=== PATIENT | female | born 1970 | race Caucasian/White ===

== ENCOUNTER → 2016-10-05 | Outpatient (CLI) | payer BC ==
[2016-10-05 10:49] LABS: Basophils # (auto) 0 uL; Basophils % (auto) 0.3 % (0.0-2.0); Eosinophils # (auto) 0 uL; Eosinophils % (auto) 0.1 % (0.0-7.0); Hemoglobin 9.3 g/dL (12.2-16.2); Lymphocytes # (auto) 0.5 uL; Lymphocytes % (auto) 8.5 % (10.0-50.0); Mean Corpuscular Hemoglobin 30.2 pg (28.0-32.0); Mean Corpuscular Volume 94.4 fL (80.0-100.0); Mean Platelet Volume 10.8 fL (7.4-10.4); Monocytes # (auto) 0.3 uL; Monocytes % (auto) 4.3 % (0.0-12.0); Neutrophils # (auto) 5.1 uL; Neutrophils % (auto) 86.8 % (37.0-80.0); Platelet Count (auto) 290 10^3/uL (140-450); Red Cell Distribution Width 15.5 % (11.6-16.0); SUSPECT VIEW TRANSMISSION; White Blood Cell 5.9 10^3/uL (4.4-10.8)
[2016-10-06 05:10] LABS: Thyroid Peroxidase (TPO) Ab 8 IU/mL (0-34)
== END | disposition home or self-care (01) ==
LOC: LAB 10:05
PROVIDERS: ATTEND Specialist
DX: N93.9 Abnormal uterine and vaginal bleeding, unspecified (principal); M32.9 Systemic lupus erythematosus, unspecified
CPT/HCPCS: 36415; 84439; 84443; 84481; 85025; 86160; 86225; 86235; 86376; 86431

== ENCOUNTER → 2016-11-02 | Outpatient (CLI) | payer BC ==
[2016-11-02 11:53] LABS: Albumin 4.1 g/dL (3.4-5.0); Basophils # (auto) 0 uL; Eosinophils # (auto) 0.1 uL; Eosinophils % (auto) 0.9 % (0.0-7.0); Hematocrit 42.1 % (36.0-46.0); Hemoglobin 13.5 g/dL (12.2-16.2); Lymphocytes # (auto) 0.7 uL; Lymphocytes % (auto) 10.2 % (10.0-50.0); Mean Corpuscular Hemoglobin 29.8 pg (28.0-32.0); Mean Corpuscular Hgb Conc. 32.1 g/dL (32.0-36.0); Mean Corpuscular Volume 92.9 fL (80.0-100.0); Mean Platelet Volume 11.6 fL (7.4-10.4); Monocytes # (auto) 0.3 uL; Monocytes % (auto) 4.1 % (0.0-12.0); Neutrophils # (auto) 5.8 uL; Neutrophils % (auto) 84.8 % (37.0-80.0); Platelet Count (auto) 290 10^3/uL (140-450); Potassium 4.2 mmol/L (3.5-5.1); Red Cell Distribution Width 16.3 % (11.6-16.0); SUSPECT VIEW TRANSMISSION; White Blood Cell 6.9 10^3/uL (4.4-10.8)
[2016-11-02 12:06] LABS: BUN/Creatinine Ratio 18.1; Bilirubin, Total 0.2 mg/dL (0.2-1.0); Calcium 8.5 mg/dL (8.5-10.1); Total Protein 7.1 g/dL (6.4-8.2)
== END | disposition home or self-care (01) ==
LOC: LAB 10:40
PROVIDERS: ATTEND Specialist
DX: N92.1 Excessive and frequent menstruation with irregular cycle (principal); D25.9 Leiomyoma of uterus, unspecified; M79.7 Fibromyalgia; M32.9 Systemic lupus erythematosus, unspecified
CPT/HCPCS: 36415; 80053; 83036; 84439; 84443; 84481; 85025; 86431

== ENCOUNTER 2016-12-17 06:26 | Inpatient (IN) | payer BC, MEDICARE ==
[2016-12-14 12:36] LABS: Basophils # (auto) 0 uL; Basophils % (auto) 0.2 % (0.0-2.0); Eosinophils # (auto) 0.2 uL; Eosinophils % (auto) 1.8 % (0.0-7.0); Hemoglobin 14.3 g/dL (12.2-16.2); Lymphocytes # (auto) 0.8 uL; Lymphocytes % (auto) 9.3 % (10.0-50.0); Mean Corpuscular Hemoglobin 31.2 pg (28.0-32.0); Mean Corpuscular Volume 91.7 fL (80.0-100.0); Mean Platelet Volume 11.9 fL (7.4-10.4); Monocytes # (auto) 0.4 uL; Monocytes % (auto) 4.1 % (0.0-12.0); Neutrophils # (auto) 7.5 uL; Neutrophils % (auto) 84.6 % (37.0-80.0); Platelet Count (auto) 197 10^3/uL (140-450); Red Cell Distribution Width 15.4 % (11.6-16.0); White Blood Cell 8.9 10^3/uL (4.4-10.8)
[2016-12-14 12:40] LABS: Urine Bilirubin Negative (Negative); Urine Color PINK (Yellow); Urine Glucose Normal (Normal); Urine Ketone Negative (Negative); Urine Nitrite Negative (Negative); Urine Urobilinogen Normal (Negative)
[2016-12-14 12:54] LABS: INR 0.94 (0.9-1.15); Prothrombin Time 10.2 sec (9.37-12.3); Urine Blood 3+ /uL (Negative)
[2016-12-14 13:03] LABS: Albumin 3.9 g/dL (3.4-5.0); BUN/Creatinine Ratio 14.8; Bilirubin, Total 0.2 mg/dL (0.2-1.0); Calcium 8.6 mg/dL (8.5-10.1); Potassium 4.3 mmol/L (3.5-5.1); Total Protein 7.2 g/dL (6.4-8.2)
[~2016-12-17] VITALS: Ht 167.6 cm; Wt 99.3 kg
[~2016-12-17 06:26] MED LIST: BUSP15TA60 PO; CLON1TAB PO; DULO20CA PO; FER325T PO; FOLI1TAB6 PO; GABA-497 PO; HYDR-3682 PO; HYDR-4663 PO; HYDR200T PO; MELO-86 PO; PILO5TAB10 PO; PRE5T OR; RANI300T3 PO; TRAZ100T2 PO
[2016-12-17] MEDS ORDERED: HYDROmorphone HCL 2 MG/ML VL ONE (06:39)
[2016-12-17] MEDS ORDERED: LIDOCAINE HCL 2 %PF INJ 10ML AMP IJ ONE (06:40)
[2016-12-17] MEDS ORDERED: PROPOFOL 10 MG/ML 20 ML IV ONE (06:40)
[2016-12-17] MEDS ORDERED: fentaNYL CITRATE 100 MCG/2 ML VL ONE (06:40)
[2016-12-17] MEDS ORDERED: ROCURONIUM 10MG/ML 10ML VIAL IV ONE (06:40)
[2016-12-17] MEDS ORDERED: MIDAZOLAM HCL 1MG/1ML-2 ML VIAL ONE (06:40)
[2016-12-17] MEDS ORDERED: METOCLOPRAMIDE HCL 5MG/ml INJ 2ml VIAL ONE (06:40)
[2016-12-17] MEDS ORDERED: ceFAZolin 1GM/50ML D5W 50 ML IV ONE (07:05)
[2016-12-17] MEDS ORDERED: HYDROCORTISONE SOD SUCC 100 MG/2ML INJ VIAL ONE (07:20)
[2016-12-17] MEDS ORDERED: GLYCOPYRROLATE 0.2 MG/ML 1ML VIAL ONE (08:20)
[2016-12-17] MEDS ORDERED: NEOSTIGMINE 1 MG/ML INJ (10mg/10ML VIAL) ONE (08:20)
[2016-12-17] MEDS ORDERED: KETOROLAC TROMETH 60MG/2ML VIAL IM ONE (08:20)
[2016-12-17] MEDS ORDERED: METOCLOPRAMIDE HCL 5MG/ml INJ 2ml VIAL IV ONE (08:30)
[2016-12-17] MEDS ORDERED: KETOROLAC TROMETH 30 MG/ML 1ML VIAL IV ONE (08:30)
[2016-12-17] MEDS ORDERED: ACETAMINOPHEN IV 100 ML IV ONE (09:38)
[2016-12-17] MEDS ORDERED: ACETAMINOPHEN IV 1000 MG/100ML (10MG/ML) IV ONE (09:45)
[2016-12-17] MEDS ORDERED: ONDANSETRON HCL 4 MG/2 ML VIAL IV PRN (09:45)
[2016-12-17] MEDS: HYDROmorphone HCL 2 MG/ML VL IV PRN ×6 (10:00→23:12)
[2016-12-17] MEDS ORDERED: CLONAZEPAM PO SCH (10:00)
[2016-12-17 11:03] LABS: BUN/Creatinine Ratio 15.4; Bilirubin, Total 0.2 mg/dL (0.2-1.0); Calcium 7.7 mg/dL (8.5-10.1); Total Protein 5.3 g/dL (6.4-8.2)
[2016-12-17 11:05] VITALS: BP 85/49
[2016-12-17] MEDS: KETOROLAC TROMETH 30 MG/ML 1ML VIAL IV SCH ×3 (11:47→23:12)
[2016-12-17] MEDS: LACTATED RINGER'S 1,000 ML IV SCH ×3 (11:49→21:39)
[2016-12-17] MEDS ORDERED: HYDR-4663 PO (12:21)
[2016-12-17] MEDS ORDERED: MAGN400T5 PO (12:21)
[2016-12-17] MEDS ORDERED: CHOL20007 PO (12:21)
[2016-12-17] MEDS: ceFAZolin 1GM/50ML D5W 50 ML IV SCH ×2 (13:12→21:38)
[2016-12-17 17:00] VITALS: BP 101/56
[2016-12-17] MEDS ORDERED: RANITIDINE HCL PO SCH (18:00)
[2016-12-17] MEDS ORDERED: methylPREDNISolone SOD SUCC 125 MG/2 ML VL IV ONE (19:00)
[2016-12-17] MEDS: FAMOTIDINE 20 MG TAB PO SCH (21:38)
[2016-12-17 22:00] VITALS: BP 112/64
[2016-12-18] MEDS: HYDROmorphone HCL 2 MG/ML VL IV PRN (03:04)
[2016-12-18 05:00] VITALS: BP 110/55
[2016-12-18] MEDS: ceFAZolin 1GM/50ML D5W 50 ML IV SCH (05:34)
[2016-12-18] MEDS: predniSONE 5 MG TAB PO SCH (05:34)
[2016-12-18] MEDS: LACTATED RINGER'S 1,000 ML IV SCH ×3 (05:34→19:00)
[2016-12-18] MEDS: KETOROLAC TROMETH 30 MG/ML 1ML VIAL IV SCH ×3 (05:34→18:00)
[2016-12-18 05:52] LABS: Basophils # (auto) 0 uL; Basophils % (auto) 0.2 % (0.0-2.0); Eosinophils # (auto) 0 uL; Hematocrit 36.1 % (36.0-46.0); Hemoglobin 12.2 g/dL (12.2-16.2); Lymphocytes # (auto) 0.7 uL; Lymphocytes % (auto) 3.8 % (10.0-50.0); Mean Corpuscular Hgb Conc. 33.7 g/dL (32.0-36.0); Mean Platelet Volume 11.6 fL (7.4-10.4); Monocytes # (auto) 0.6 uL; Monocytes % (auto) 3.5 % (0.0-12.0); Neutrophils % (auto) 92.5 % (37.0-80.0); Platelet Count (auto) 205 10^3/uL (140-450); Red Cell Distribution Width 14.7 % (11.6-16.0); White Blood Cell 18.4 10^3/uL (4.4-10.8)
[2016-12-18 08:00] VITALS: BP 108/61
[2016-12-18] MEDS ORDERED: HYDROcodone-ACET 5/325MG TAB PO PRN (08:30)
[2016-12-18 09:00] VITALS: BP 108/61
[2016-12-18] MEDS: HYDROcodone-ACET 5/325MG TAB PO PRN ×4 (09:15→21:29)
[2016-12-18] MEDS ORDERED: PATIENTS OWN MEDICATION (Duloxetine Hcl (Cymbalta) 30 MG) PO SCH (10:00)
[2016-12-18] MEDS ORDERED: BUSPIRONE HCL 15 MG PO SCH (10:00)
[2016-12-18] MEDS: busPIRone HCL 10 MG TAB PO SCH ×2 (10:41→21:28)
[2016-12-18] MEDS: HYDROXYCHLOROQUINE SULFATE 200 MG TAB PO SCH (10:41)
[2016-12-18] MEDS: clonazePAM 0.5 MG TAB PO SCH (10:42)
[2016-12-18] MEDS: DULoxetine HCL 30 MG CAP PO SCH (10:42)
[2016-12-18 11:00] VITALS: BP 108/48
[2016-12-18] MEDS: GABAPENTIN 300 MG CAP PO SCH ×2 (14:11→21:29)
[2016-12-18 16:58] VITALS: BP 113/70
[2016-12-18] MEDS: FAMOTIDINE 20 MG TAB PO SCH (21:29)
[2016-12-18 22:07] VITALS: BP 121/66
[2016-12-19] MEDS: KETOROLAC TROMETH 30 MG/ML 1ML VIAL IV SCH ×2 (00:05→05:35)
[2016-12-19] MEDS: LACTATED RINGER'S 1,000 ML IV SCH ×2 (01:43→08:23)
[2016-12-19 05:11] VITALS: BP 124/72
[2016-12-19] MEDS: GABAPENTIN 300 MG CAP PO SCH (05:34)
[2016-12-19] MEDS: predniSONE 5 MG TAB PO SCH (05:34)
[2016-12-19] MEDS: HYDROcodone-ACET 5/325MG TAB PO PRN (05:35)
[2016-12-19 08:00] VITALS: BP 116/67
[2016-12-19 09:00] VITALS: BP 116/67
[2016-12-19] MEDS: clonazePAM 0.5 MG TAB PO SCH (09:41)
[2016-12-19] MEDS: DULoxetine HCL 30 MG CAP PO SCH (09:41)
[2016-12-19] MEDS: busPIRone HCL 10 MG TAB PO SCH (09:41)
[2016-12-19] MEDS: HYDROXYCHLOROQUINE SULFATE 200 MG TAB PO SCH ×2 (10:00→12:06)
[2016-12-19 10:29] VITALS: BP 116/67
== END 2016-12-19 12:00 | disposition home or self-care (01) | DRG 743 ==
LOC: SUR 06:26 → WEST WING 06:27
PROVIDERS: ADMIT Specialist; ATTEND Specialist
PROC: 0UTC0ZZ Resection of Cervix, Open Approach (ICD-10-PCS; 2016-12-17)
PROC: 0UT70ZZ Resection of Bilateral Fallopian Tubes, Open Approach (ICD-10-PCS; 2016-12-17)
PROC: 0UT20ZZ Resection of Bilateral Ovaries, Open Approach (ICD-10-PCS; 2016-12-17)
PROC: 0UT90ZZ Resection of Uterus, Open Approach (ICD-10-PCS; principal; 2016-12-17 07:13)
DX: D25.9 Leiomyoma of uterus, unspecified (principal); N92.1 Excessive and frequent menstruation with irregular cycle; N80.0 Endometriosis of uterus; D64.9 Anemia, unspecified; F32.9 Major depressive disorder, single episode, unspecified; G43.909 Migraine, unspecified, not intractable, without status migrainosus; L93.0 Discoid lupus erythematosus; M79.7 Fibromyalgia; N73.6 Female pelvic peritoneal adhesions (postinfective); Z80.3 Family history of malignant neoplasm of breast; Z80.8 Family history of malignant neoplasm of other organs or systems
CPT/HCPCS: 36415; 80053; 81003; 84702; 85025; 85610; 85730; 86850; 86900; 86901; 87081; J0131; J0690; J1885; J2250; J2405; J2704